=== PATIENT | female | born 1990 ===

== ENCOUNTER 2018-07-13 18:03 | Emergency (ER) | payer OTHER ==
[2018-07-13 18:03] VITALS: BMI 23.0
[2018-07-13] MEDS ORDERED: Morphine 4 MG/ML VIAL ONE ×2 (21:00→23:11)
[2018-07-13] MEDS ORDERED: Iohexol 240 (50 ml) ONE (21:00)
[2018-07-13] MEDS: Iohexol 240 (50 ml) PO STA (21:01)
[2018-07-13] MEDS: Sodium Chloride 0.9% 1,000 ML IV STA (21:02)
[2018-07-13] MEDS: Morphine 4 MG/ML VIAL IVP STA ×2 (21:12→23:21)
--- NOTE | 2018-07-13 21:16 | ED PDOC ---
HPI: Abdomen Time Seen by Provider: 07/13/18 19:46 Chief Complaint (Nursing): Abdominal Pain Chief Complaint (Provider): Abdominal Pain History Per: Patient History/Exam Limitations: no limitations Onset/Duration Of Symptoms: Hrs (x10) Current Symptoms Are (Timing): Still Present Location Of Pain/Discomfort: RLQ Quality Of Discomfort: "Pain" Associated Symptoms: Nausea, Loss Of Appetite. denies: Vomiting, Diarrhea, Co nstipation, Urinary Symptoms Additional Complaint(s): 28 year old female with no PMHx presents to the ED with gradual onset RLQ pain since 9 am this morning associated nausea and loss of appetite. Pain is worse when she ambulates and feels like it radiates to her leg. Patient denies vomiting, diarrhea, constipation, urinary symptoms or vaginal symptoms. LMP was 06/22/18 and normal. She took Tylenol with no relief. PMD: none provided Last Menstral Period: 06/22/18 Past Medical History Reviewed: Historical Data, Nursing Documentation, Vital Signs Vital Signs: Last Vital Signs Temp 98.6 F 07/13/18 19:44 Pulse 93 H 07/13/18 19:44 Resp 17 07/13/18 19:44 BP 131/65 07/13/18 19:44 Pulse Ox 99 07/13/18 19:44 - Medical History PMH: No Chronic Diseases Denies: Chronic Kidney Disease - Surgical History Surgical History: No Surg Hx - Family History Family History: States: No Known Family Hx - Social History Current smoker - smoking cessation education provided: No Ex-Smoker (has not smoked in the last 12 months): No - Immunization History Hx Tetanus Toxoid Vaccination: No Hx Influenza Vaccination: No Hx Pneumococcal Vaccination: No - Allergies Allergies/Adverse Reactions: Allergies Allergy/AdvReac Type Severity Reaction Status Date / Time No Known Allergies Allergy Verified 09/11/17 14:22 Review of Systems ROS Statement: Except As Marked, All Systems Reviewed And Found Negative Gastrointestinal: Positive for: Nausea, Abdominal Pain. Negative for: Vomiting, Constipation Genitourinary Female: Negative for: Dysuria, Frequency, Hematuria, Vaginal Discharge, Vaginal Bleeding Physical Exam - Reviewed Nursing Documentation Reviewed: Yes Vital Signs Reviewed: Yes - Physical Exam Appears: Positive for: In Acute Distress (painful distress) Head Exam: Positive for: ATRAUMATIC, NORMOCEPHALIC Skin: Positive for: Warm, Dry Eye Exam: Positive for: EOMI, PERRL ENT: Negative for: Pharyngeal Erythema, Tonsillar Exudate Neck: Positive for: Painless ROM, Supple Cardiovascular/Chest: Positive for: Regular Rate, Rhythm. Negative for: Murmur Respiratory: Positive for: Normal Breath Sounds. Negative for: Respiratory Distress Gastrointestinal/Abdominal: Positive for: Soft, Tenderness (RLQ tenderness to palpation), Other (positive McBurneys sign, positive psoas sign, positive obtur ators sign , negative Rovsings sign). Negative for: Mass, Guarding, Rebound Back: Positive for: Normal Inspection. Negative for: L CVA Tenderness, R CVA Tenderness Extremity: Positive for: Normal ROM. Negative for: Deformity Lymphatic: Negative for: Adenopathy Neurologic/Psych: Positive for: Alert. Negative for: Motor/Sensory Deficits - Laboratory Results Result Diagrams: 07/13/18 21:14 07/13/18 21:14 - ECG O2 Sat by Pulse Oximetry: 99 (RA) Pulse Ox Interpretation: Normal Medical Decision Making Medical Decision Making: Time: 2014 Impression: RLQ pain Differential diagnoses include but are not limited to: appendicitis, ovarian cyst, UTI, cystitis, renal colic, mesenteric adenitis, enteritis Plan: --CT abdomen and pelvis --CMP --CBC --PTT --PT/INR --Morphine 4 mg IVP --Omnipaque --Unasyn --Blood culture --Urine culture --UA Labs unremarkable [address] Royal. Pending CT scan and final ER disposition. Scribe Attestation: Documented by Yokasta Stephen, acting as a scribe for Josiane Delvalle MD. Provider Scribe Attestation: All medical record entries made by the Scribe were at my direction and personally dictated by me. I have reviewed the chart and agree that the record accurately reflects my personal performance of the history, physical exam, medical decision making, and the department course for this patient. I have also personally directed, reviewed, and agree with the discharge instructions and disposition. Disposition - Clinical Impression Clinical Impression: Abdominal pain - Disposition Disposition: Transfer of Care Disposition Time: 23:00 Condition: FAIR
[2018-07-13 21:20] LABS: BASO % 0.4 % (0.0-2.0); EOS # 0.1 K/uL (0.0-0.7); EOS % 1.9 % (0.0-4.0); HEMOGLOBIN 9.9 g/dL (12.0-16.0); LYMPH # 2.1 K/uL (1.0-4.3); LYMPH % 36.4 % (20.0-40.0); MEAN CELL VOLUME 74.4 fl (81.0-99.0); MEAN CORPUSCULAR HEMOGLOBIN 23.5 pg (27.0-31.0); MEAN CORPUSCULAR HGB CONC 31.6 g/dL (33.0-37.0); MONO # 0.5 K/uL (0.0-0.8); MONO % 8.8 % (0.0-10.0); NEUT % 52.5 % (50.0-75.0); RBC 4.2 Mil/uL (3.80-5.20); RED CELL DISTRIBUTION WIDTH 17.6 % (11.5-14.5); WHITE BLOOD COUNT 5.7 K/uL (4.8-10.8)
[2018-07-13 21:32] LABS: ALB/GLOB RATIO 1.2 (1.0-2.1); ALBUMIN 4.1 g/dL (3.5-5.0); ALT/SGPT 17 U/L (9-52); AST/SGOT 31 U/L (14-36); BLOOD UREA NITROGEN 8 mg/dl (7-17); CALCIUM 9.4 mg/dL (8.4-10.2); GFR NON-AFRICAN AMERICAN > 60
[2018-07-13 21:49] LABS: PROTHROMBIN TIME 11.6 Seconds (9.8-13.1)
[2018-07-13 21:52] LABS: PARTIAL THROMBOPLASTIN TIME 33.7 Seconds (25.6-37.1)
[2018-07-13 21:53] LABS: SQUAMOUS EPITHIAL 5 /hpf (0-5); URINE BACTERIA RARE (<OCC); URINE BILIRUBIN NEGATIVE (NEGATIVE); URINE BLOOD NEGATIVE (NEGATIVE); URINE CLARITY SLIGHTY-CLOUDY (Clear); URINE COLOR YELLOW (YELLOW); URINE GLUCOSE (UA) NEG (NEGATIVE); URINE LEUKOCYTE ESTERASE MOD Leu/uL (Negative); URINE PROTEIN NEGATIVE (NEGATIVE); URINE UROBILINOGEN 0.2-1.0 mg/dL (0.2-1.0)
[2018-07-13] MEDS ORDERED: Iohexol 300 100 ML IJ ONE (23:32)
[2018-07-13] MEDS ORDERED: Sodium Chloride 0.9% 50 ML IV ONE (23:33)
--- NOTE | 2018-07-14 00:08 | ED PDOC ---
- Laboratory Results Result Diagrams: 07/13/18 21:14 07/13/18 21:14 Lab Results: PT 11.6 Seconds (9.8-13.1) 07/13/18 21:14 INR 1.0 07/13/18 21:14 APTT 33.7 Seconds (25.6-37.1) 07/13/18 21:14 Total Bilirubin 1.0 mg/dl (0.2-1.3) 07/13/18 21:14 AST 31 U/L (14-36) 07/13/18 21:14 ALT 17 U/L (9-52) 07/13/18 21:14 Alkaline Phosphatase 63 U/L (38-126) 07/13/18 21:14 Total Protein 7.4 G/DL (6.3-8.2) 07/13/18 21:14 Albumin 4.1 g/dL (3.5-5.0) 07/13/18 21:14 Globulin 3.3 gm/dL (2.2-3.9) 07/13/18 21:14 Albumin/Globulin Ratio 1.2 (1.0-2.1) 07/13/18 21:14 Urine Color Yellow (YELLOW) 07/13/18 21:14 Urine Clarity Slighty-cloudy (Clear) 07/13/18 21:14 Urine pH 6.0 (5.0-8.0) 07/13/18 21:14 Ur Specific [place] 1.020 (1.003-1.030) 07/13/18 21:14 Urine Protein Negative mg/dL (NEGATIVE) 07/13/18 21:14 Urine Glucose (UA) Neg mg/dL (NEGATIVE) 07/13/18 21:14 Urine Ketones Negative mg/dL (NEGATIVE) 07/13/18 21:14 Urine Blood Negative (NEGATIVE) 07/13/18 21:14 Urine Nitrate Negative (NEGATIVE) 07/13/18 21:14 Urine Bilirubin Negative (NEGATIVE) 07/13/18 21:14 Urine Urobilinogen 0.2-1.0 mg/dL (0.2-1.0) 07/13/18 21:14 Ur Leukocyte Esterase Mod Judi/uL (Negative) 07/13/18 21:14 Urine RBC (Auto) 3 /hpf (0-3) 02/27/19 21:14 Urine Microscopic WBC 8 /hpf (0-5) H 07/13/18 21:14 Ur Squamous Epith Cells 5 /hpf (0-5) 07/13/18 21:14 Urine Bacteria Rare (<OCC) 07/13/18 21:14 - ECG O2 Sat by Pulse Oximetry: 99 (RA) Pulse Ox Interpretation: Normal Medical Decision Making Medical Decision Making: Time: 23:00 Patient care endorsed from Dr. Delvalle to provider pending CT and reevaluation. 00:56 CT Abd Pelvis FINDINGS: LUNG BASES: The lung bases appear clear. No pleural effusions are seen. LIVER: Unremarkable. GALLBLADDER AND BILE DUCTS: The gallbladder appears within normal limits. No radioopaque gallstones are seen . No biliary ductal dilatation is evident. PANCREAS: Unremarkable. SPLEEN: Unremarkable. ADRENAL GLANDS: Unremarkable. KIDNEYS, URETERS, AND BLADDER: The kidneys appear within normal limits. There is no hydronephrosis or hydroureter. No urinary calculi are seen. STOMACH AND BOWEL: Unremarkable appearance of the stomach and bowel. No evidence of bowel obstruction. No evidence suggesting enteritis or colitis. APPENDIX: Normal appendix. PERITONEUM: No free fluid. No free air. LYMPH NODES: No lymphadenopathy is evident. REPRODUCTIVE: There is a 3.0 cm cystic lesion of the right ovary. Hounsfield units are approximately 21. This could represent a complex cyst. Other etiologies are not excluded. Please correlate clinically and if indicated this could be further evaluated with pelvic sonogram. There is a hyperdense lesion at the superior fundal region of the uterus which measures approximately 2.5 cm in greatest dimension. This could represent an enhancing fibroid or other mass. Please correlate clinically and if indicated this could be further evaluated with pelvic sonogram pelvic MRI. The uterus appears enlarged, measuring 12.8 x 5.4 x 6.5 cm. VASCULATURE: No evidence of abdominal aortic aneurysm. BONES: No aggressive appearing osseous lesion. No acute osseous pathology evident. IMPRESSION: 1. There is a 3.0 cm cystic lesion of the right ovary. Hounsfield units are approximately 21. This could represent a complex cyst. Other etiologies are not excluded. Please correlate clinically and if indicated this could be further evaluated with pelvic sonogram. Is there a positive HCG test? 2. There is a hyperdense lesion at the superior fundal region of the uterus which measures approximately 2.5 cm in greatest dimension. This could represent an enhancing fibroid or other mass. Please correlate clinically and if indicated this could be further evaluated with pelvic sonogram pelvic MRI. 3. The uterus appears enlarged, measuring 12.8 x 5.4 x 6.5 cm. 4. Normal appendix. 02:44 US Pelvis Findings: The uterus measures 12.4x5.9x6.9 cm. Normal study for length measuring 4.8 cm. Thickened endometrium measuring 1.2 mm in its maximum thickness. Posterior fundal fibroid is noted measuring 2.9 cm. Echogenic polyp is identified in the endometrium measuring 5 mm. Right ovarian simple cyst measuring 2.7 cm. Left ovarian simple cyst measuring 2.5 cm. Impression: No evidence of ovarian torsion. Enlarge uterus. Fundal uterine fibroid. Thickened endometrium. Endometrial polyp. No evidence of ovarian torsion. 02:53 Upon provider reevaluation patient is feeling better, is medically stable, and requires no further treatment in the ED at this time. Counseling was provided and all questions were answered regarding diagnosis and need for follow up with [facility]. There is agreement to discharge plan. Return if symptoms persist or worsen. Scribe Attestation: Documented by Wilian Huynh acting as a scribe for Luis Royal MD. Provider Scribe Attestation: All medical record entries made by the Scribe were at my direction and personally dictated by me. I have reviewed the chart and agree that the record accurately reflects my personal performance of the history, physical exam, medical decision making, and the department course for this patient. I have also personally directed, reviewed, and agree with the discharge instructions and disposition. Disposition - Clinical Impression Clinical Impression: Ovarian cyst - POA Present On Arrival: None - Disposition Referrals: [facility] [Outside] Disposition: Routine/Home Disposition Time: 02:53 Condition: IMPROVED Additional Instructions: AGNES HANNA, thank you for letting us take care of you today. Your provider was Luis Royal MD and you were treated for ABD PAIN, NAUSEA. The emergency medical care you received today was directed at your acute symptoms. If you were prescribed any medication, please fill it and take as directed. It may take several days for your symptoms to resolve. Return to the Emergency Department if your symptoms worsen, do not improve, or if you have any other problems. Please contact your doctor or call one of the physicians/clinics you have been referred to that are listed on the Patient Visit Information form that is includ ed in your discharge packet. Bring any paperwork you were given at discharge with you along with any medications you are taking to your follow up visit. Our treatment cannot replace ongoing medical care by a primary care provider outside of the emergency department. Thank you for allowing the [facility] team to be part of your care today. If you had an X-Ray or CT scan: A Radiologist will review the ED reading if any change in treatment is needed we will contact you. If you had a blood, urine, or wound culture: It will take several days for the results, if any change in treatment is needed we will contact you. If you had an STI test: It will take 48 hours for the results. Please call after 1 week if you have not heard back. Prescriptions: Ibuprofen [Motrin Tab] 600 mg PO Q6 #30 tab Instructions: Ovarian Cysts Forms: [employer] (Swedish)
[2018-07-14 03:17] VITALS: BP 96/63; PULSE 71; RESP 16; TEMP 98.7
[2018-07-14 04:25] VITALS: O2SAT 99
--- NOTE | 2018-07-14 08:26 | US ---
Date of service: 07/14/2018 HISTORY: Right ovarian cyst COMPARISON: None available. TECHNIQUE: Transvaginal pelvic ultrasound was performed. FINDINGS: UTERUS: Measures 12.4 x 5.9 x 6.9 cm. Anteverted and enlarged. There is a 2.9 x 2.5 x 2.9 cm intramural posterior fundal fibroid. ENDOMETRIUM: Measures 12 mm in diameter. There is a 5 x 5 x 4 mm polypoid echogenic lesion in the posterior endometrium. No significant central flow on color Doppler imaging. CERVIX: No cervical abnormality identified. RIGHT OVARY: Measures 4.1 x 3.0 x 2.8 cm. No solid mass. Normal flow. There is a 2.7 x 2.2 x 2.4 cm simple cyst. LEFT OVARY: Measures 3.8 x 3.0 x 2.4 cm. No solid mass. Normal flow. There is a 2.5 x 2.0 x 2.3 cm simple cyst. FREE FLUID: Small amount of free fluid in the pelvis is likely physiologic. OTHER FINDINGS: None. IMPRESSION: 1. Enlarged fibroid uterus with a solitary 2.9 x 2.5 x 2.9 cm intramural posterior fundal fibroid. 2. 5 mm polypoid lesion in the posterior endometrium could represent a small endometrial polyp. 3. 2.7 cm simple cyst in the right ovary. No evidence for ovarian torsion. A preliminary report was provided by [employer].
--- NOTE | 2018-07-14 11:17 | CT ---
Date of service: 07/13/2018 PROCEDURE: CT Abdomen and Pelvis with contrast HISTORY: RLQ pain COMPARISON: None. TECHNIQUE: Contiguous helical/transaxial sections of the abdomen pelvis performed following oral and intravenous injection of approximately 85 cc Omnipaque 300 contrast material. Additional 2D sagittal and coronal reformats generated Radiation dose: Total exam DLP = 283.85 mGy-cm. This CT exam was performed using one or more of the following dose reduction techniques: Automated exposure control, adjustment of the mA and/or kV according to patient size, and/or use of iterative reconstruction technique. FINDINGS: LOWER THORAX: Unremarkable. LIVER: Unremarkable. No gross lesion or ductal dilatation. GALLBLADDER AND BILE DUCTS: Unremarkable. PANCREAS: Unremarkable. No gross lesion or ductal dilatation. SPLEEN: Unremarkable. ADRENALS: Unremarkable. No mass. KIDNEYS AND URETERS: Unremarkable. No hydronephrosis. No solid mass. VASCULATURE: Unremarkable. No aortic aneurysm. No aortic atherosclerotic calcification or mural plaque present. BOWEL: Unremarkable. No obstruction. Moderate amount of stool present within the large bowel consistent with fecal retention/constipation. No gross mural thickening. APPENDIX: Normal appendix. PERITONEUM: Unremarkable. No free fluid. No free air. LYMPH NODES: Unremarkable. No enlarged lymph nodes. BLADDER: Urinary bladder is markedly distended. No evidence of intraluminal urinary bladder calculi. REPRODUCTIVE: There is a enhancing rounded masslike density located of within the posterior aspect of the uterine fundus/body junction that is consistent with a uterine fibroid.. Additionally, there is a right-sided adnexal cystic focus measures approximately 2.8 x 2.1 cm. Consider follow-up pelvic ultrasound for further evaluation. BONES: No acute fracture. OTHER FINDINGS: None. IMPRESSION: Findings consistent with mild constipation. Uterine fibroid. Right adnexal cyst. Consider follow-up pelvic ultrasound further evaluation
== END 2018-07-14 03:15 | disposition home or self-care (01) ==
LOC: H.ER 18:03
DX: N83.201 Unspecified ovarian cyst, right side (principal); D25.9 Leiomyoma of uterus, unspecified; N84.0 Polyp of corpus uteri; R93.89 Abnormal findings on diagnostic imaging of other specified body structures
CPT/HCPCS: 74177; 76830; 80053; 81003; 81025; 85025; 85610; 85730; 87040; 87086; 96361; 96365; 96375; 96376; 99285; J0295; J2270; J7030; Q9966; Q9967

== ENCOUNTER 2018-10-08 06:54 | Emergency (ER) | payer OTHER ==
[2018-10-08 06:54] VITALS: BMI 23.0
[2018-10-08 07:12] VITALS: RESP 18; O2SAT 100
[2018-10-08] MEDS ORDERED: Sodium Chloride 0.9% 1,000 ML IV STA (07:22)
--- NOTE | 2018-10-08 07:31 | ED PDOC ---
HPI:Nausea, Vomiting, Diarrhea Time Seen by Provider: 10/08/18 07:19 Chief Complaint (Nursing): Abdominal Pain Chief Complaint (Provider): Vomiting/Diarrhea History Per: Patient History/Exam Limitations: no limitations Onset/Duration Of Symptoms: Days (x2) Current Symptoms Are (Timing): Still Present Additional Complaint(s): Patient is a 28 y/o female with a PMHx of anemia who presents to the ED for evaluation of multiple episodes of diarrhea and vomiting for the past two days. Patient states she tried to drink small amounts of fluids, however, this triggered her to vomit. Patient denies fever and blood in stool or vomit. Of note, patient LMP was 10/05/18. PCP: None Past Medical History Reviewed: Historical Data, Nursing Documentation, Vital Signs Vital Signs: Last Vital Signs Temp 97.8 F 10/08/18 07:06 Pulse 80 10/08/18 07:06 Resp 18 10/08/18 07:06 BP Pulse Ox 100 10/08/18 07:06 Primary Care Provider: Non [facility] Provider, - Medical History PMH: Anemia Denies: Chronic Kidney Disease - Surgical History Surgical History: No Surg Hx - Family History Family History: States: No Known Family Hx - Immunization History Hx Tetanus Toxoid Vaccination: No Hx Influenza Vaccination: No Hx Pneumococcal Vaccination: No - Home Medications Home Medications: Ambulatory Orders Medication Instructions Recorded Ibuprofen [Motrin Tab] 600 mg PO Q6 #30 tab 07/14/18 Ondansetron ODT [Zofran ODT] 4 mg PO Q6 #30 odt 10/08/18 - Allergies Allergies/Adverse Reactions: Allergies Allergy/AdvReac Type Severity Reaction Status Date / Time No Known Allergies Allergy Verified 09/11/17 14:22 Review of Systems ROS Statement: Except As Marked, All Systems Reviewed And Found Negative Constitutional: Negative for: Fever Gastrointestinal: Positive for: Vomiting (non-bloody), Diarrhea (non-bloody) Physical Exam - Reviewed Nursing Documentation Reviewed: Yes Vital Signs Reviewed: Yes - Physical Exam Appears: Positive for: No Acute Distress (appears tired) Head Exam: Positive for: ATRAUMATIC, NORMAL INSPECTION, NORMOCEPHALIC Skin: Positive for: Normal Color, Warm, DRY Eye Exam: Positive for: EOMI, Normal appearance, PERRL Neck: Positive for: Normal, Painless ROM, Supple Cardiovascular/Chest: Positive for: Regular Rate, Rhythm. Negative for: Murmur Respiratory: Positive for: Normal Breath Sounds. Negative for: Respiratory Distress Gastrointestinal/Abdominal: Positive for: Normal Exam, Soft. Negative for: Tenderness (epigastric) Back: Positive for: Normal Inspection. Negative for: L CVA Tenderness, R CVA Tenderness Extremity: Positive for: Normal ROM. Negative for: Pedal Edema, Deformity Neurological/Psych: Positive for: Alert, Oriented (x3) - Laboratory Results Result Diagrams: 10/08/18 07:31 10/08/18 07:31 - ECG O2 Sat by Pulse Oximetry: 100 (RA) Pulse Ox Interpretation: Normal Medical Decision Making Medical Decision Making: Time: 720 Impression: Gastroenteritis Plan: CMP Lipase CBC IV Fluids Zofran 4 mg IVP UA Reassess --- Workup unremarkable. Pt to be discharged home and follow up with PMD. Scribe Attestation: Documented by Doc Graves, acting as a scribe Gerry Mcfarland MD. Provider Scribe Attestation: All medical record entries made by the Scribe were at my direction and personally dictated by me. I have reviewed the chart and agree that the record accurately reflects my personal performance of the history, physical exam, medical decision making, and the department course for this patient. I have also personally directed, reviewed, and agree with the discharge instructions and disposition. Disposition - Clinical Impression Clinical Impression: Vomiting, Diarrhea - Disposition Referrals: [facility] [Outside] Disposition Time: 10:06 Condition: IMPROVED Additional Instructions: Increase rest and hydration while symptoms last. Take Zofran as needed for nausea. Follow up with primary medical doctor if symptoms worsen or if new symptoms develop. Prescriptions: Ondansetron ODT [Zofran ODT] 4 mg PO Q6 #30 odt Instructions: Nausea and Vomiting, Adult (DC) Forms: [email or web address] (B[place]i), [facility] ED School/Work Excuse Print Language: [email or web address]
[2018-10-08 08:02] LABS: BASO % 0.4 % (0.0-2.0); EOS # 0.1 K/uL (0.0-0.7); EOS % 2.3 % (0.0-4.0); HEMOGLOBIN 10.5 g/dL (12.0-16.0); LYMPH # 1.2 K/uL (1.0-4.3); LYMPH % 37.3 % (20.0-40.0); MEAN CORPUSCULAR HEMOGLOBIN 23.1 pg (27.0-31.0); MEAN CORPUSCULAR HGB CONC 31.2 g/dL (33.0-37.0); MEAN PLATELET VOLUME 9.6 fl (7.2-11.7); MONO # 0.4 K/uL (0.0-0.8); MONO % 12.3 % (0.0-10.0); NEUT # 1.6 K/uL (1.8-7.0); NEUT % 47.7 % (50.0-75.0); NRBC % 0.1 % (0.0-0.0); RBC 4.54 Mil/uL (3.80-5.20); RED CELL DISTRIBUTION WIDTH 18.1 % (11.5-14.5); WHITE BLOOD COUNT 3.3 K/uL (4.8-10.8)
[2018-10-08 08:20] LABS: ALB/GLOB RATIO 1.3 (1.0-2.1); ALBUMIN 3.9 g/dL (3.5-5.0); ALT/SGPT 21 U/L (9-52); AST/SGOT 27 U/L (14-36); BLOOD UREA NITROGEN 7 mg/dl (7-17); CALCIUM 8.6 mg/dL (8.4-10.2); GFR NON-AFRICAN AMERICAN > 60; LIPASE 32 U/L (23-300)
[2018-10-08 08:52] LABS: SQUAMOUS EPITHIAL 4 /hpf (0-5); URINE BILIRUBIN NEGATIVE (NEGATIVE); URINE BLOOD MODERATE (NEGATIVE); URINE CLARITY SLIGHTY-CLOUDY (Clear); URINE COLOR YELLOW (YELLOW); URINE GLUCOSE (UA) NEG (NEGATIVE); URINE LEUKOCYTE ESTERASE TRACE Leu/uL (Negative); URINE PROTEIN 30 mg/dL (NEGATIVE); URINE UROBILINOGEN 0.2-1.0 mg/dL (0.2-1.0)
[2018-10-08 10:30] VITALS: BP 99/55; PULSE 59; TEMP 98.1
== END 2018-10-08 10:34 | disposition home or self-care (01) ==
LOC: H.ER 06:54
DX: R19.7 Diarrhea, unspecified (principal); R11.10 Vomiting, unspecified
CPT/HCPCS: 80053; 81003; 81025; 83690; 85025; 96361; 96374; 99283; J2405; J7030

== ENCOUNTER 2018-10-14 10:11 | Emergency (ER) | payer OTHER ==
[2018-10-14 10:17] VITALS: RESP 16
[2018-10-14] MEDS ORDERED: Iohexol 240 (50 ml) PO ONE (10:34)
--- NOTE | 2018-10-14 10:39 | ED PDOC ---
HPI:Nausea, Vomiting, Diarrhea Time Seen by Provider: 10/14/18 10:19 Chief Complaint (Nursing): Headache Chief Complaint (Provider): vomiting, diarrhea History Per: Patient History/Exam Limitations: no limitations Onset/Duration Of Symptoms: Intermittent Episodes Current Symptoms Are (Timing): Still Present Context: Food Severity: Moderate Quality Of Discomfort: Cramping Exacerbating Factors: None Alleviating Factors: None Additional Complaint(s): 28yo female c/o return of crampy abd pain, nonbloody diarrhea and 2 episodes vomiting since yesterday. Was seen here 5 days ago for similar symptoms, states they improved after discharge but now returned. Also notes mild headache. Denies fever, syncope, focal abd pain or sore throat. Past Medical History Reviewed: Historical Data, Nursing Documentation, Vital Signs Vital Signs: Last Vital Signs Temp 98.4 F 10/14/18 10:15 Pulse 69 10/14/18 10:15 Resp 16 10/14/18 10:15 BP 105/66 10/14/18 10:15 Pulse Ox 99 10/14/18 10:15 Primary Care Provider: Non [facility] Provider, - Medical History PMH: Anemia Denies: Chronic Kidney Disease - Surgical History Surgical History: No Surg Hx - Family History Family History: States: Unknown Family Hx - Living Arrangements Living Arrangements: With Family - Social History Current smoker - smoking cessation education provided: No - Immunization History Hx Tetanus Toxoid Vaccination: No Hx Influenza Vaccination: No Hx Pneumococcal Vaccination: No - Home Medications Home Medications: Ambulatory Orders Medication Instructions Recorded Ibuprofen [Motrin Tab] 600 mg PO Q6 #30 tab 07/14/18 Ondansetron ODT [Zofran ODT] 4 mg PO Q6 #30 odt 10/08/18 Ciprofloxacin [Cipro] 500 mg PO BID #14 tab 10/14/18 Dicyclomine [Dicyclomine HCl] 10 mg PO QID PRN #10 cap 10/14/18 metroNIDAZOLE [Flagyl] 500 mg PO TID #21 tab 10/14/18 - Allergies Allergies/Adverse Reactions: Allergies Allergy/AdvReac Type Severity Reaction Status Date / Time No Known Allergies Allergy Verified 09/11/17 14:22 Review of Systems ROS Statement: Except As Marked, All Systems Reviewed And Found Negative Constitutional: Negative for: Fever ENT: Negative for: Ear Pain Cardiovascular: Negative for: Chest Pain Respiratory: Negative for: Shortness of Breath Gastrointestinal: Positive for: Nausea, Vomiting, Abdominal Pain, Diarrhea Genitourinary Female: Negative for: Dysuria, Hematuria Musculoskeletal: Negative for: Neck Pain Skin: Negative for: Rash Neurological: Positive for: Headache. Negative for: Weakness, Altered Mental Status Physical Exam - Reviewed Nursing Documentation Reviewed: Yes Vital Signs Reviewed: Yes - Physical Exam Appears: Positive for: Well, Non-toxic, No Acute Distress Head Exam: Positive for: ATRAUMATIC, NORMAL INSPECTION, NORMOCEPHALIC Skin: Positive for: Normal Color, Warm, DRY Eye Exam: Positive for: EOMI, Normal appearance, PERRL ENT: Positive for: Normal ENT Inspection Neck: Positive for: Normal, Painless ROM Cardiovascular/Chest: Positive for: Regular Rate, Rhythm Respiratory: Positive for: CNT, Normal Breath Sounds Gastrointestinal/Abdominal: Positive for: Normal Exam, Soft Back: Positive for: Normal Inspection Extremity: Positive for: Normal ROM Neurological/Psych: Positive for: Awake, Alert, Normal Tone, Symmetric/Intact Strength. Negative for: Motor/Sensory Deficits - Laboratory Results Result Diagrams: 10/14/18 11:00 10/14/18 11:00 - ECG O2 Sat by Pulse Oximetry: 99 Medical Decision Making Medical Decision Making: given return of symptoms with second ED visit in 5 days, obtain labs and imaging r/o IBD initiate IVF, toradol after upreg neg, zofran and bentyl labs reviewed and unremarkable other than stable mild anemia CT obtained: Accession No. : [id number] Patient Name / ID : REYES / [id number] Exam Date : 10/14/2018 16:21:54 ( Approved ) Study Comment : Sex / Age : F / 28Y Creator : Garry Ace MD Dictator : Garry Ace MD Sql Etl Developer : Research Programmer : Garry Ace MD Approver2 : Report Date : 10/14/2018 16:48:47 My Comment : Date of service: 10/14/2018 PROCEDURE: CT Abdomen and Pelvis with contrast HISTORY: Diffuse abdominal pain, diarrhea and vomiting. Inflammatory bowel disease suspected. Negative test (concurrent with this examination). COMPARISON: 07/14/2018. CT abdomen and pelvis. TECHNIQUE: Intravenous contrast dose: 95 cc Omnipaque 300. Radiation dose: Total exam DLP = 292.08 mGy-cm. This CT exam was performed using one or more of the following dose reduction techniques: Automated exposure control, adjustment of the mA and/or kV according to patient size, and/or use of iterative reconstruction technique. FINDINGS: LOWER THORAX: Unremarkable. LIVER: Unremarkable. No gross lesion or ductal dilatation. GALLBLADDER AND BILE DUCTS: Unremarkable. PANCREAS: Unremarkable. No gross lesion or ductal dilatation. SPLEEN: Unremarkable. ADRENALS: Unremarkable. No mass. KIDNEYS AND URETERS: Unremarkable. No hydronephrosis. No solid mass. VASCULATURE: Unremarkable. No aortic aneurysm. No atherosclerotic calcification or mural plaque present. BOWEL: Fluid-filled loops of small bowel. Thickening of the distal ileum extending to the ileocecal valve region consistent with ileitis. Thickening of the wall of the colon particularly the ascending colon and transverse colon. To lesser extent descending colon. More pronounced changes in the rectosigmoid region. APPENDIX: A normal appendix is visualized in it's entirety. PERITONEUM: Trace free fluid identified in the pelvis/cul de sac.No free air. LYMPH NODES: Unremarkable. No enlarged lymph nodes. BLADDER: Unremarkable. REPRODUCTIVE: Unremarkable. Pelvic cyst likely originating from the left adnexa. BONES: No acute fracture. OTHER FINDINGS: None. IMPRESSION: Mild ileitis without mechanical obstructing process. Colitis affecting right young colon and to a greater extent rectosigmoid region. These represent new findings compared to prior CT scans. Well appearing without vomiting or diarrhea in ED To DC with cipro and flagyl, exercise precaution instructions while on cipro and followup PMD/ GI. Disposition - Clinical Impression Clinical Impression: Colitis, Abdominal pain, Diarrhea - Patient ED Disposition Is Patient to be Admitted: No Counseled Patient/Family Regarding: Studies Performed, Diagnosis, Need For Followup, Rx Given - Disposition Disposition: Routine/Home Disposition Time: 17:36 Condition: STABLE Additional Instructions: Take antibiotics as directed. Return to ER for any worse or new symptoms. Drink plenty of fluids. Prescriptions: Ciprofloxacin [Cipro] 500 mg PO BID #14 tab Dicyclomine [Dicyclomine HCl] 10 mg PO QID PRN #10 cap PRN Reason: Gi Distress metroNIDAZOLE [Flagyl] 500 mg PO TID #21 tab Instructions: Acute Abdomen (Belly Pain), Adult (DC), Colitis, Diarrhea in Adolescents and Adults Forms: [facility] ([place])
[2018-10-14] MEDS ORDERED: Iohexol 240 (50 ml) ONE (11:01)
[2018-10-14 11:22] LABS: BASO % 0.5 % (0.0-2.0); EOS % 0.8 % (0.0-4.0); HEMOGLOBIN 10.5 g/dL (12.0-16.0); LYMPH # 1.4 K/uL (1.0-4.3); MEAN CELL VOLUME 74.3 fl (81.0-99.0); MEAN CORPUSCULAR HEMOGLOBIN 23.4 pg (27.0-31.0); MEAN CORPUSCULAR HGB CONC 31.5 g/dL (33.0-37.0); MEAN PLATELET VOLUME 9.3 fl (7.2-11.7); MONO # 0.3 K/uL (0.0-0.8); MONO % 7.2 % (0.0-10.0); NEUT # 2.9 K/uL (1.8-7.0); NEUT % 62.5 % (50.0-75.0); RBC 4.49 Mil/uL (3.80-5.20); RED CELL DISTRIBUTION WIDTH 18.1 % (11.5-14.5); WHITE BLOOD COUNT 4.7 K/uL (4.8-10.8)
[2018-10-14 11:37] LABS: ALB/GLOB RATIO 1.3 (1.0-2.1); ALT/SGPT 21 U/L (9-52); AST/SGOT 34 U/L (14-36); BLOOD UREA NITROGEN 4 mg/dl (7-17); CALCIUM 8.6 mg/dL (8.4-10.2); GFR NON-AFRICAN AMERICAN > 60; LIPASE 74 U/L (23-300)
[2018-10-14 11:37] LABS: SQUAMOUS EPITHIAL 1 /hpf (0-5); URINE BACTERIA RARE (<OCC); URINE BILIRUBIN NEGATIVE (NEGATIVE); URINE BLOOD NEGATIVE (NEGATIVE); URINE CLARITY SLIGHTY-CLOUDY (Clear); URINE COLOR YELLOW (YELLOW); URINE GLUCOSE (UA) NEG (NEGATIVE); URINE HYALINE CAST 0-2 /hpf (0-2); URINE LEUKOCYTE ESTERASE TRACE Leu/uL (Negative); URINE PROTEIN 30 mg/dL (NEGATIVE); URINE UROBILINOGEN 0.2-1.0 mg/dL (0.2-1.0)
[2018-10-14] MEDS ORDERED: Sodium Chloride 0.9% 50 ML IV ONE (12:54)
[2018-10-14] MEDS ORDERED: Iohexol 300 100 ML IJ ONE (12:54)
--- NOTE | 2018-10-14 16:52 | CT ---
Date of service: 10/14/2018 PROCEDURE: CT Abdomen and Pelvis with contrast HISTORY: Diffuse abdominal pain, diarrhea and vomiting. Inflammatory bowel disease suspected. Negative test (concurrent with this examination). COMPARISON: 07/14/2018. CT abdomen and pelvis. TECHNIQUE: Intravenous contrast dose: 95 cc Omnipaque 300. Radiation dose: Total exam DLP = 292.08 mGy-cm. This CT exam was performed using one or more of the following dose reduction techniques: Automated exposure control, adjustment of the mA and/or kV according to patient size, and/or use of iterative reconstruction technique. FINDINGS: LOWER THORAX: Unremarkable. LIVER: Unremarkable. No gross lesion or ductal dilatation. GALLBLADDER AND BILE DUCTS: Unremarkable. PANCREAS: Unremarkable. No gross lesion or ductal dilatation. SPLEEN: Unremarkable. ADRENALS: Unremarkable. No mass. KIDNEYS AND URETERS: Unremarkable. No hydronephrosis. No solid mass. VASCULATURE: Unremarkable. No aortic aneurysm. No atherosclerotic calcification or mural plaque present. BOWEL: Fluid-filled loops of small bowel. Thickening of the distal ileum extending to the ileocecal valve region consistent with ileitis. Thickening of the wall of the colon particularly the ascending colon and transverse colon. To lesser extent descending colon. More pronounced changes in the rectosigmoid region. APPENDIX: A normal appendix is visualized in it's entirety. PERITONEUM: Trace free fluid identified in the pelvis/cul de sac.No free air. LYMPH NODES: Unremarkable. No enlarged lymph nodes. BLADDER: Unremarkable. REPRODUCTIVE: Unremarkable. Pelvic cyst likely originating from the left adnexa. BONES: No acute fracture. OTHER FINDINGS: None. IMPRESSION: Mild ileitis without mechanical obstructing process. Colitis affecting right young colon and to a greater extent rectosigmoid region. These represent new findings compared to prior CT scans.
[2018-10-14 18:11] VITALS: BP 123/72; PULSE 76; TEMP 97.8; O2SAT 100
== END 2018-10-14 17:55 | disposition home or self-care (01) ==
LOC: H.ER 10:11
DX: K52.9 Noninfective gastroenteritis and colitis, unspecified (principal); R10.9 Unspecified abdominal pain; R19.7 Diarrhea, unspecified
CPT/HCPCS: 74177; 80053; 81003; 81025; 83690; 83735; 84100; 85025; 96374; 99285; J1885; J2405; Q9966; Q9967